=== PATIENT | male | born 1980 | race Caucasian/White ===

== ENCOUNTER 2024-03-06 14:47 | Emergency (ER) | payer OTHER ==
[2024-03-06 15:11] VITALS: BP 158/106; PULSE 80; RESP 18; TEMP 98.4; BMI 28.8
[2024-03-06] MEDS ORDERED: IBUPROFEN 400 MG TABLET (FP) PO ONE (15:32)
[2024-03-06] MEDS: LIDOCAINE 5% TOPICAL PATCH TP ONE (16:30)
[2024-03-06] MEDS ORDERED: LIDOCAINE PATCH REMOVAL MC SCH (22:00)
== END 2024-03-06 16:31 | disposition home or self-care (01) ==
LOC: FER 14:47
DX: M25.512 Pain in left shoulder (principal); W01.0XXA Fall on same level from slipping, tripping and stumbling without subsequent striking against object, initial encounter; Y93.01 Activity, walking, marching and hiking; Y92.009 Unspecified place in unspecified non-institutional (private) residence as the place of occurrence of the external cause
CPT/HCPCS: 73030-TC-LT-FY; 99283-25

== ENCOUNTER 2024-06-09 11:10 | Emergency (ER) | payer OTHER ==
[2024-06-09] MEDS ORDERED: ACETAMINOPHEN 500 MG TABLET (FP) ONE (11:25)
[2024-06-09] MEDS: ACETAMINOPHEN 500 MG TABLET (FP) PO ONE (11:27)
[2024-06-09 11:28] VITALS: BP 130/96; PULSE 79; RESP 18; TEMP 98.7; BMI 27.8
== END 2024-06-09 12:24 | disposition home or self-care (01) ==
LOC: FER 11:10
DX: S60.221A Contusion of right hand, initial encounter (principal); R20.0 Anesthesia of skin; W23.1XXA Caught, crushed, jammed, or pinched between stationary objects, initial encounter
CPT/HCPCS: 73090-TC-RT-FY; 73110-TC-RT-FY; 73130-TC-RT-FY; 99283-25

== ENCOUNTER 2024-08-23 15:10 | Emergency (ER) | payer OTHER ==
[2024-08-23 15:19] VITALS: BP 140/94; PULSE 76; RESP 16; TEMP 98.2; BMI 29.0
[2024-08-23] MEDS ORDERED: clonazePAM 0.5 MG TABLET ONE (15:32)
[2024-08-23] MEDS: clonazePAM 0.5 MG TABLET PO ONE (15:35)
[2024-08-23 16:12] LABS: HEMATOCRIT 47.5 % (35.4-49); HEMOGLOBIN 15.5 G/dL (11.7-16.9); MCH 28.9 pg (25.7-33.7); MCHC 32.6 g/dl (32.0-35.9); MEAN CELL VOLUME 88.6 fl (80-96); MEAN PLT VOLUME 8.5 fl (7.5-11.1); PLATELET COUNT 278.1 10^3/uL (134-434); RBC 5.36 10^6/uL (4.00-5.60); RDW 15.6 % (11.9-15.9); WHITE BLOOD COUNT 8.8 10^3/uL (4.0-10.8)
[2024-08-23 16:22] LABS: ALBUMIN 4.1 g/dl (3.4-5.0); BILIRUBIN,TOTAL 0.3 mg/dl (0.2-1); CALCIUM 9.2 mg/dl (8.5-10.1); CREATININE 1.1 mg/dl (0.6-1.3); POTASSIUM 4.2 mmol/L (3.5-5.1); TOT PROT 6.9 g/dl (6.4-8.2)
[2024-08-23 16:43] LABS: PLATELET ESTIMATE ADEQUATE
== END 2024-08-23 16:50 | disposition home or self-care (01) ==
LOC: FER 15:10
DX: F41.9 Anxiety disorder, unspecified (principal); R00.2 Palpitations; R07.89 Other chest pain
CPT/HCPCS: 36415; 80053; 84484; 85027; 93005; 99284-25